=== PATIENT | male | born 1975 | race Caucasian/White ===

== ENCOUNTER 2019-06-02 12:42 | Observation (INO) | payer BC ==
--- NOTE | 2019-06-02 13:04 | ER Document Report ---
ED Medical Screen (RME) - General Chief Complaint: Trouble Talking Stated Complaint: POSSIBLE STROKE Time Seen by Provider: 06/02/19 12:47 Notes: 43-year-old male with no significant medical problems presents the emergency department with concern for stroke. Patient states his last known normal was yesterday morning and he has had slurred speech since then. Patient states that he developed a moderate headache last with some neck pain with no significant changes until yesterday morning. Patient denies any vision changes, denies any acute limb weakness, denies any confusion or disorientation, denies ataxia, denies acute shortness of breath or chest pain. Smokes cigars and drinks alcohol. NIHSS score 1 Exam: NEURO: A &O X 3, normal speech, normal gailt, PERRL, EOMI, SILT, follows commands in all 4 extremities, no gross abnormalities of cranial nerves, no focal neuro deficits, no pronator drift, [id number] testing normal, rapid alternating hand movements normal, [id number] normal, front man strength 5/5 bilateral, 5/5 strength in both proximal and distal upper and lower extremities I have greeted and performed a rapid initial assessment of this patient. A comprehensive ED assessment and evaluation of the patient, analysis of test results and completion of medical decision making process will be conducted by an additional ED providers. - Related Data Allergies/Adverse Reactions: No Known Allergies Allergy (Unverified 06/02/19 13:00) Past Medical History Renal/ Medical History: Denies: Hx Peritoneal Dialysis Physical Exam - Vital signs Vitals: Temp Pulse Resp BP Pulse Ox 98.6 F 22 L 18 199/114 H 98 06/02/19 12:46 06/02/19 12:46 06/02/19 12:46 06/02/19 12:46 06/02/19 12:46 Course - Vital Signs Vital signs: Temp Pulse Resp BP Pulse Ox 98.6 F 22 L 18 199/114 H 98 06/02/19 12:46 06/02/19 12:46 06/02/19 12:46 06/02/19 12:46 06/02/19 12:46
[2019-06-02 13:45] LABS: INTERNATIONAL RATION (INR) 0.95; PROTHROMBIN TIME 12.7 SEC (11.4-15.4)
[2019-06-02 13:46] LABS: PARTIAL THROMBOPLASTIN TIME 31.4 SEC (23.5-35.8)
[2019-06-02 13:47] LABS: APPEARANCE,URINE SLIGHTLY-CLOUDY; BILIRUBIN,URINE NEGATIVE (NEGATIVE); COLOR,URINE YELLOW; GLUCOSE, URINE NEGATIVE (NEGATIVE); KETONES,URINE NEGATIVE (NEGATIVE); LEUKOCYTE ESTERASE,URINE NEGATIVE (NEGATIVE); NITRITE,URINE NEGATIVE (NEGATIVE); PROTEIN,URINE NEGATIVE (NEGATIVE); URINE SPECIFIC GRAVITY 1.019; UROBILINOGEN,URINE NEGATIVE mg/dL (<2.0)
--- NOTE | 2019-06-02 13:58 | RADIOLOGY REPORT (SQ) ---
EXAM DESCRIPTION: CT HEAD WITHOUT COMPLETED DATE/TIME: 06/02/2019 1:43 pm REASON FOR STUDY: stroke alert COMPARISON: None. TECHNIQUE: Axial images acquired through the brain without intravenous contrast. Images reviewed wi th bone, brain and subdural windows. Additional sagittal and coronal reconstructions were generated. Images stored on PACS. All CT scanners at this facility use dose modulation, iterative reconstruction, and/or weight based d osing when appropriate to reduce radiation dose to as low as reasonably achievable (ALARA). [facility]: Dose Right [facility]: CareDose [facility]: Dose Right [facility]: Teradose 4D [facility]: Pureshield RADIATION DOSE: CT Rad equipment meets quality standard of care and radiation dose reduction techniq ues were employed. CTDIvol: 53.2 mGy. DLP: 1017 mGy-cm. mGy. LIMITATIONS: None. FINDINGS: VENTRICLES: Normal size and contour. CEREBRUM: No masses. No hemorrhage. No midline shift. No evidence for acute infarction. Normal gra y/white matter differentiation. No areas of low density in the white matter. CEREBELLUM: No masses. No hemorrhage. No alteration of density. No evidence for acute infarction. EXTRAAXIAL SPACES: No fluid collections. No masses. ORBITS AND GLOBE: No intra- or extraconal masses. Normal contour of globe without masses. CALVARIUM: No fracture. PARANASAL SINUSES: No fluid or mucosal thickening. SOFT TISSUES: No mass or hematoma. OTHER: No other significant finding. IMPRESSION: NORMAL BRAIN CT WITHOUT CONTRAST. EVIDENCE OF ACUTE STROKE: NO. COMMENT: Pertinent positive or negative findings of the imaging study reported as a CRITICAL EXAM ahsan LUNA PA-C at13:48 on 06/02/2019. Category of Critical Exam: Stroke protocol. Quality ID # [id number]: Final reports with documentation of one or more dose reduction techniques (e.g., Au tomated exposure control, adjustment of the mA and/or kV according to patient size, use of iterative reconstruction technique) TECHNICAL DOCUMENTATION: JOB ID: [id number] [employer]- All Rights Reserved Reading location - IP/workstation name: [email or web address]-
[2019-06-02 14:00] LABS: ALBUMIN 4.9 g/dL (3.5-5.0); ALKALINE PHOSPHATASE 68 U/L (38-126); ANION GAP 12 (5-19); ASPARTATE AMINO TRANSFERASE 25 U/L (17-59); BILIRUBIN,DIRECT 0.2 mg/dL (0.0-0.4); BILIRUBIN,TOTAL 0.4 mg/dL (0.2-1.3); BLOOD UREA NITROGEN 15 mg/dL (7-20); CALCIUM 9.8 mg/dL (8.4-10.2); CARBON DIOXIDE 29 mmol/L (22-30); CHLORIDE 101 mmol/L (98-107); GLUCOSE 110 mg/dL (75-110); POTASSIUM 4.2 mmol/L (3.6-5.0); TOTAL PROTEIN 7.8 g/dL (6.3-8.2)
[2019-06-02 14:08] LABS: ABSOLUTE EOSINOPHILS # (AUTO) 0.1 10^3/uL (0.0-0.6); ABSOLUTE LYMPHOCYTES (AUTO) 1.2 10^3/uL (0.5-4.7); ABSOLUTE MONOCYTES (AUTO) 0.8 10^3/uL (0.1-1.4); ABSOLUTE NEUT (AUTO) 5.3 10^3/uL (1.7-8.2); BASOPHILS % (AUTO) 0.5 % (0-2); EOSINOPHILS % (AUTO) 1.2 % (0-6); LYMPHOCYTES % (AUTO) 16.4 % (13-45); MEAN CORPUSCULAR HEMOGLOBIN 30.7 pg (27.0-33.4); MEAN CORPUSCULAR VOLUME 90 fl (80-97); MONOCYTES % (AUTO) 10.3 % (3-13); PLATELET COUNT 301 10^3/uL (150-450); RED BLOOD COUNT 4.88 10^6/uL (4.35-5.55); RED CELL DISTRIBUTION WIDTH 14.1 % (11.5-14.0); SEGMENTED NEUTROPHILS % (AUTO) 71.6 % (42-78); TOTAL CELLS COUNTED % (AUTO) 100 %; WHITE BLOOD COUNT 7.4 10^3/uL (4.0-10.5)
--- NOTE | 2019-06-02 15:16 | ER Document Report ---
ED General - General Chief Complaint: Trouble Talking Stated Complaint: POSSIBLE STROKE Time Seen by Provider: 06/02/19 12:47 - HPI Notes: Patient is a 43-year-old male with a history of hypertension and hypercholesterolemia who presents complaining of right facial droop with slurring of speech, difficulty with his words, and global headache. He has noticed some neck pain as well. Patient states that the headache began this past weekend, but he woke up with the slurring yesterday morning. Patient states that he has noticed symptoms continued through today. He otherwise is able to eat and drink without difficulty. He is urinating normally and having normal bowel movements. He is able to ambulate without difficulty. He has not noticed any one-sided weakness. No tick bite or recent illness. Denies drug allergies. He is not on any blood thinning medications. No injury. Denies any fever, head injury, changes in vision/mentation/hearing, URI, sore throat, chest pain, palpitations, syncope, cough, shortness of breath, wheeze, dyspnea, abdominal pain, nausea/vomiting/diarrhea, urinary retention, dysuria, hematuria, loss of control of bowel or bladder, numbness/tingling, saddle anesthesia, muscle paralysis/weakness, or rash. - Related Data Allergies/Adverse Reactions: No Known Allergies Allergy (Verified 06/02/19 15:22) Past Medical History - Social History Smoking Status: Never Smoker Family History: Reviewed & Not Pertinent Patient has suicidal ideation: No Patient has homicidal ideation: No Renal/ Medical History: Denies: Hx Peritoneal Dialysis Review of Systems - Review of Systems -: Yes All other systems reviewed and negative Physical Exam - Vital signs Vitals: Temp Pulse Resp BP Pulse Ox 98.6 F 22 L 18 199/114 H 98 06/02/19 12:46 06/02/19 12:46 06/02/19 12:46 06/02/19 12:46 06/02/19 12:46 - Notes Notes: PHYSICAL EXAMINATION: GENERAL: Well-appearing, well-nourished and in no acute distress. A&Ox4. Answers questions appropriately. HEAD: Atraumatic, normocephalic. Non-tender. EYES: Pupils equal round and reactive to light, extraocular movements intact, sclera anicteric, conjunctiva are normal. No nystagmus. ENT: Nares patent and without discharge. oropharynx clear without exudates. No tonsilar hypertrophy or erythema. Moist mucous membranes. NECK: Normal range of motion, supple without lymphadenopathy. No rigidity/meningismus. No midline tenderness. LUNGS: Breath sounds clear to auscultation bilaterally and equal. No wheezes rales or rhonchi. HEART: Regular rate and rhythm without murmurs, rubs, gallops. ABDOMEN: Soft, nontender, nondistended abdomen. No guarding, no rebound. Normal bowel sounds present. No CVA tenderness bilaterally. Musculoskeletal: Ext b/l: FROM to passive/active. Strength 5+/5. No deficits noted. No bony tenderness of extremities. Extremities: No cyanosis, clubbing, or edema b/l. Peripheral pulses 2+. Capillary refill less than 2 seconds. NEUROLOGICAL: NIH 3 (one for slurring, one for speech articulation, and one for facial asymmetry (mild)). GCS 15. Cranial nerves grossly intact. Normal spee ch, normal gait. Normal sensory, motor exams. Reflexes 2+ b/l. ABBEY's negative. Pronator drift negative. Heel/macias, finger/nose wnl. Romberg neg. PSYCH: Normal mood, normal affect. SKIN: Warm, Dry, normal turgor, no rashes or lesions noted. Course - Re-evaluation Re-evalutation: 06/02/19 15:[address] Zamora who recommends admission. I did speak with Daphney Merino PA-C who accepted pt for admit to [facility]. Patient is an afebrile, well-hydrated, 43-year-old male who presents with strokelike symptoms with an NIH of 3 who is outside of the acute stroke window as his symptoms began when he woke up yesterday morning. He does have an associated headache. Vitals are otherwise acceptable aside from elevated blood pressure without significant tachycardia, tachypnea, or hypoxia. Labetalol 10 mg given IV today. Patient is otherwise nontoxic-appearing and is able to tolerate p.o. without difficulty. CT scan and labs otherwise unremarkable. Patient will be admitted to [facility] for further eval. - Vital Signs Vital signs: Temp Pulse Resp BP Pulse Ox 98.6 F 22 L 14 162/111 H 97 06/02/19 12:46 06/02/19 12:46 06/02/19 15:01 06/02/19 15:01 06/02/19 15:01 - Laboratory Result Diagrams: 06/02/19 13:10 06/02/19 13:10 Laboratory results interpreted by me: 06/02/19 13:10 RDW 14.1 H Discharge - Discharge Clinical Impression: Stroke-like symptoms Condition: Stable Disposition: ADMITTED INPATIENT Admitting Provider: Daphney Merino PA-C Unit Admitted: [facility]
[2019-06-02] MEDS ORDERED: LABETALOL HCL INJ 20 MG/4 ML DISP.SYRIN IV ONE (15:20)
--- NOTE | 2019-06-02 15:56 | RADIOLOGY REPORT (SQ) ---
EXAM DESCRIPTION: CHEST SINGLE VIEW COMPLETED DATE/TIME: 06/02/2019 3:47 pm REASON FOR STUDY: stroke alert COMPARISON: None. EXAM PARAMETERS: NUMBER OF VIEWS: One view. TECHNIQUE: Single frontal radiographic view of the chest acquired. RADIATION DOSE: NA LIMITATIONS: None. FINDINGS: LUNGS AND PLEURA: No opacities, masses or pneumothorax. No pleural effusion. MEDIASTINUM AND HILAR STRUCTURES: No masses. Contour normal. HEART AND VASCULAR STRUCTURES: Heart upper limits of normal in size. Normal vasculature. BONES: No acute findings. HARDWARE: None in the chest. OTHER: No other significant finding. IMPRESSION: NO ACUTE RADIOGRAPHIC FINDING IN THE CHEST. TECHNICAL DOCUMENTATION: JOB ID: [id number] [employer]- All Rights Reserved Reading location - IP/workstation name: [email or web address]
[2019-06-02] MEDS ORDERED: OXYCODONE-ACETAMINOPHEN 5-325 MG TABLET PO PRN (15:57)
[2019-06-02] MEDS ORDERED: ACETAMINOPHEN 325 MG TABLET PO PRN (15:57)
[2019-06-02] MEDS ORDERED: ONDANSETRON 4 MG TAB.RAPDIS PO PRN (15:57)
[2019-06-02] MEDS ORDERED: ONDANSETRON HCL INJ/PF 4 MG/2 ML SDV IV PRN (15:57)
[2019-06-02] MEDS ORDERED: HYDRALAZINE HCL INJ/PF 20 MG/1 ML SDV IV PRN ×2 (16:13→20:58)
--- NOTE | 2019-06-02 16:33 | PDOC H&P ---
History of Present Illness Admission Date/PCP: 06/02/19 15:45 Patient admitted today for hypertensive emergency History of Present Illness: PROMISE ARTIS is a 43 year old male moved down here from [place] about 2 months ago. 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 comes into the emergency room today because he has had slurred speech, headache for about a week ,what appears to be a right facial droop. When I saw the patient he had no facial weakness. According to his patient the symptoms started yesterday morning. He was at work today and they told him that he was slurring his words and he should go to the emergency room. In the emergency room his first blood pressure was 199/114 then 162/111, and 161/109. When I was in the room examining the patient that was his current pressure 161/109. She has had 1 dose of labetalol 10 mg IV in the ER Patient states his regular blood pressures are 124/85. States that last in August his blood pressure was doing so well that his provider cut the Norvasc back in half to 5 mg daily. He states he has been on blood pressure medicine now for a year and a half. Patient does have a strong family history of hypertension. CT head scan was normal,, chest x-ray was normal, EKG was normal. Past Medical History Cardiac Medical History: Reports: Hyperlipidema, Hypertension Pulmonary Medical History: Reports: None Neurological Medical History: Reports: None Past Surgical History Past Surgical History: Reports: None Social History Smoking Status: Never Smoker - Advance Directive Resuscitation Status: Full Code Family History Family History: Reviewed & Not Pertinent Parental Family History Reviewed: No Children Family History Reviewed: No Sibling(s) Family History Reviewed.: No Medication/Allergy Allergies/Adverse Reactions: No Known Allergies Allergy (Verified 06/02/19 15:22) Review of Systems Constitutional: PRESENT: as per HPI, headache(s). ABSENT: chills, fever(s), weight gain, weight loss Cardiovascular: ABSENT: chest pain, dyspnea on exertion, edema, orthropnea, palpitations Respiratory: ABSENT: cough, hemoptysis Neurological: ABSENT: abnormal gait, abnormal speech, confusion, dizziness, focal weakness, syncope Physical Exam Vital Signs: Temp Pulse Resp BP Pulse Ox 98.6 F 22 L 25 H 161/109 H 97 06/02/19 12:46 06/02/19 12:46 06/02/19 15:31 06/02/19 15:31 06/02/19 15:31 Intake & Output 06/01/19 06/02/19 06/03/19 06:59 06:59 06:59 Weight 115.2 kg General appearance: PRESENT: no acute distress, other - She is awake alert complaining of slight headache. Patient talks for long period of time or in full sentences he can notice that he is slurring his words having difficulty with expressive Respiratory exam: PRESENT: clear to auscultation ela. ABSENT: rales, rhonchi, wheezes Cardiovascular exam: PRESENT: RRR. ABSENT: diastolic murmur, rubs, systolic murmur Neurological exam: PRESENT: alert, awake, oriented to person, oriented to place, oriented to time, oriented to situation, CN II-XII grossly intact, other - Dysarthria no motor deficit. ABSENT: motor sensory deficit Psychiatric exam: PRESENT: appropriate affect, normal mood. ABSENT: homicidal ideation, suicidal ideation Results Laboratory Results: 06/02/19 13:10 06/02/19 13:10 06/02/19 06/02/19 06/02/19 13:10 13:10 13:10 WBC 7.4 RBC 4.88 Hgb 15.0 Hct 44.0 MCV 90 MCH 30.7 MCHC 34.0 RDW 14.1 H Plt Count 301 Seg Neutrophils % 71.6 Sodium 142.2 Potassium 4.2 Chloride 101 Carbon Dioxide 29 Anion Gap 12 BUN 15 Creatinine 0.76 Est GFR ( Amer) > 60 Glucose 110 Calcium 9.8 Total Bilirubin 0.4 AST 25 Alkaline Phosphatase 68 Total Protein 7.8 Albumin 4.9 Urine Color YELLOW Urine Appearance SLIGHTLY-CLOUDY Urine pH 5.0 Ur Specific [place] 1.019 Urine Protein NEGATIVE Urine Glucose (UA) NEGATIVE Urine Ketones NEGATIVE Urine Blood NEGATIVE Urine Nitrite NEGATIVE Ur Leukocyte Esterase NEGATIVE Urine WBC (Auto) 1 Urine RBC (Auto) 1 06/02/19 13:10 Troponin I < 0.012 Impressions: Chest X-Ray 06/02/19 13:00 IMPRESSION: NO ACUTE RADIOGRAPHIC FINDING IN THE CHEST. Head CT 06/02/19 13:00 IMPRESSION: NORMAL BRAIN CT WITHOUT CONTRAST. EVIDENCE OF ACUTE STROKE: NO. Assessment and Plan - Diagnosis (1) Hypertensive emergency Is this a current diagnosis for this admission?: Yes Plan: Patient states his normal blood pressure is 124/85, in the emergency room 199/114 patient is having TIA-like symptoms with slurred speech slight headache and earlier had a right facial droop.. Patient states that some of the symptoms actually started yesterday. According to his they worsen today. (2) Hyperlipidemia Is this a current diagnosis for this admission?: Yes Plan: Patient is on simvastatin 10 mg daily lipid panel was scheduled for tomorrow (3) Obesity Is this a current diagnosis for this admission?: Yes Plan: His weight today is 115 kg, height 5 feet 10 inches - Time Time Spent with patient: 35 or more minutes
[2019-06-02 16:34] LABS: CHOLESTEROL 179.81 mg/dL (0-200); CREATINE KINASE 138 U/L (55-170); TRIGLYCERIDES 66 mg/dL (<150)
[2019-06-02] MEDS: ENOXAPARIN SODIUM INJ 40 MG/0.4 ML DISP.SYRIN SUBCUT SCH (16:45)
[2019-06-02 16:46] LABS: DIRECT LDL 131 mg/dL (<100)
[2019-06-02] MEDS ORDERED: AMLODIPINE BESYLATE 10 MG TABLET PO SCH (17:00)
[2019-06-02] MEDS ORDERED: HYDROCHLOROTHIAZIDE 25 MG TABLET PO SCH (17:00)
--- NOTE | 2019-06-02 18:26 | RADIOLOGY REPORT (SQ) ---
EXAM DESCRIPTION: MRA HEAD WITHOUT COMPLETED DATE/TIME: 06/02/2019 5:58 pm REASON FOR STUDY: TIA, HTN COMPARISON: None. TECHNIQUE: Axial 3-D [id number] acquisition imaging performed through the brain in the area of t he nap[place] of [place]. Images reformatted using 3-D MIPS. LIMITATIONS: None. FINDINGS: SOURCE IMAGES: No unexpected findings on source images. No large masses. 3-D MIP: Subtotal occlusion of the left MCA with hypoperfusion of the left MCA distribution. OTHER: No other significant finding. IMPRESSION: Subtotal occlusion of the left MCA with hypoperfusion of the left MCA distribution. COMMENT: The findings were sent to the Radiology Results Communication Center at 18:20 on 06/02/2019 to be communicated to a licensed caregiver. TECHNICAL DOCUMENTATION: JOB ID: [id number] [employer]- All Rights Reserved Reading location - IP/workstation name: [email or web address]
--- NOTE | 2019-06-02 18:32 | RADIOLOGY REPORT (SQ) ---
EXAM DESCRIPTION: MRI HEAD WITHOUT COMPLETED DATE/TIME: 06/02/2019 5:59 pm REASON FOR STUDY: TIA, hypertension COMPARISON: CT brain TECHNIQUE: Multiplanar imaging includes non-contrasted T1, T2, FLAIR, and diffusion with ADC map seq uences. Images stored on PACS. LIMITATIONS: None. FINDINGS: ANATOMY: No anomalies. Normal vascular flow voids. Pituitary fossa normal. CSF SPACES: Normal in size and contour. No hemorrhage. CEREBRUM: Sulci and gyri normal in size and contour. Punctate areas scattered through the white and fritz matter left hemisphere. . No evidence of hemorrhage, mass, or extraaxial fluid collection. POSTERIOR FOSSA: No signal alteration. No hemorrhage. No edema, masses or mass effect. Internal estela tory canals, cerebello-pontine angles, mastoids normal. DIFFUSION IMAGING: Multiple punctate areas of restricted diffusion in the left hemisphere. Large are a in the left basal ganglia. ORBITS: No masses. Globes normal. PARANASAL SINUSES: No fluid levels. Mucosa normal. OTHER: No other significant finding. IMPRESSION: Multiple small acute infarcts involving the left MCA distribution. EVIDENCE OF ACUTE STROKE: YES. LEFT MCA COMMENT: The findings were sent to the Radiology Results Communication Center at 18:26 on 06/02/2019 to be communicated to a licensed caregiver. TECHNICAL DOCUMENTATION: JOB ID: [id number] [employer]- All Rights Reserved Reading location - IP/workstation name: [email or web address]
[2019-06-02] MEDS ORDERED: LABETALOL HCL INJ 20 MG/4 ML DISP.SYRIN IV PRN (20:58)
[2019-06-02] MEDS ORDERED: ATORVASTATIN CALCIUM 40 MG TABLET PO SCH (22:00)
[2019-06-02] MEDS ORDERED: METOPROLOL TARTRATE 100 MG TABLET PO SCH (22:00)
[2019-06-02] MEDS ORDERED: LISINOPRIL 10 MG TABLET PO SCH (22:00)
--- NOTE | 2019-06-02 22:18 | EKG REPORT ---
SEVERITY:- BORDERLINE ECG - SINUS RHYTHM BORDERLINE T ABNORMALITIES, ANTERIOR LEADS : Confirmed by: Wesley Baptiste 02-Jun-2019 22:17:19
[2019-06-02] MEDS: FAMOTIDINE 20 MG TABLET PO SCH (22:22)
[2019-06-02] MEDS: METOPROLOL SUCCINATE 50 MG TAB.SR.24H PO SCH (22:22)
[2019-06-02] MEDS: ZOLPIDEM TARTRATE 5 MG TABLET PO SCH (22:22)
[2019-06-03 07:34] LABS: ANION GAP 10 (5-19); BLOOD UREA NITROGEN 12 mg/dL (7-20); CALCIUM 9.5 mg/dL (8.4-10.2); CARBON DIOXIDE 31 mmol/L (22-30); CHLORIDE 100 mmol/L (98-107); GLUCOSE 112 mg/dL (75-110); POTASSIUM 3.5 mmol/L (3.6-5.0)
[2019-06-03] MEDS ORDERED: HYDRALAZINE HCL INJ/PF 20 MG/1 ML SDV IV PRN (09:19)
[2019-06-03] MEDS: ASPIRIN 81 MG TABLET, ENT COATED PO SCH (11:11)
[2019-06-03] MEDS: CLOPIDOGREL BISULFATE 75 MG TABLET PO SCH (11:12)
[2019-06-03] MEDS: LOSARTAN POTASSIUM 50 MG TABLET PO SCH (11:12)
[2019-06-03] MEDS: FAMOTIDINE 20 MG TABLET PO SCH ×2 (11:12→21:40)
[2019-06-03] MEDS: ENOXAPARIN SODIUM INJ 40 MG/0.4 ML DISP.SYRIN SUBCUT SCH (11:12)
--- NOTE | 2019-06-03 16:40 | PDOC PROGRESS REPORT ---
Subjective Progress Note for:: 06/03/19 Subjective:: The patient is a 43 year old male with a past medical history of HTN, HLD, and obesity who was admitted 06/02/19 with strokelike symptoms. His symptoms have nearly resolved other than continued Slurred speech, although, patient and family reports that this is significantly improved and he is nearly returned to baseline. Patient was seen on morning rounds with his present. He is found resting in bed comfortably on room air. He reports continued slight slurred speech but all other symptoms have resolved. He has been ambulatory in the hallways without difficulty and is requesting to be allowed to go outside for a few minutes today. He denies fever, chills, chest pain, palpitations, dyspnea, abdominal pain, nausea vomiting diarrhea. He denies focal deficits. Reviewed imaging results and recommendations for follow-up JOSE C. All questions answered to their satisfaction. Reason For Visit: HYPERTENSIVE EMERGENCY,HYPERLIPIDEMIA,OBESITY Physical Exam Vital Signs: Temp Pulse Resp BP Pulse Ox 98.5 F 73 18 152/98 H 96 06/03/19 12:01 06/03/19 12:01 06/03/19 12:01 06/03/19 12:01 06/03/19 12:01 Intake & Output 06/02/19 06/03/19 06/04/19 06:59 06:59 06:59 Intake Total 480 Balance 480 Weight 113 kg General appearance: PRESENT: no acute distress, cooperative, obese, well- developed, well-nourished Head exam: PRESENT: atraumatic, normocephalic Eye exam: PRESENT: conjunctiva pink, EOMI, PERRLA. ABSENT: scleral icterus Ear exam: PRESENT: normal external ear exam Mouth exam: PRESENT: moist, tongue midline Neck exam: ABSENT: carotid bruit, JVD, lymphadenopathy, thyromegaly Respiratory exam: PRESENT: clear to auscultation ela, symmetrical, unlabored. ABSENT: rales, rhonchi, wheezes Cardiovascular exam: PRESENT: RRR. ABSENT: diastolic murmur, rubs, systolic murmur Pulses: PRESENT: normal dorsalis pedis pul Vascular exam: PRESENT: normal capillary refill GI/Abdominal exam: PRESENT: normal bowel sounds, soft. ABSENT: distended, guarding, mass, organolmegaly, rebound, tenderness Rectal exam: PRESENT: deferred Extremities exam: PRESENT: full ROM. ABSENT: calf tenderness, clubbing, pedal edema Neurological exam: PRESENT: alert, awake, oriented to person, oriented to place, oriented to time, oriented to situation, CN II-XII grossly intact, other - Slight slurred speech per family; I do not notice speech changes.. ABSENT: motor sensory deficit Psychiatric exam: PRESENT: appropriate affect, normal mood. ABSENT: homicidal ideation, suicidal ideation Skin exam: PRESENT: dry, intact, warm. ABSENT: cyanosis, rash Results Laboratory Results: 06/02/19 13:10 06/03/19 06:00 06/02/19 06/02/19 06/03/19 13:10 13:10 06:00 Sodium 141.4 Potassium 3.5 L Chloride 100 Carbon Dioxide 31 H Anion Gap 10 BUN 12 Creatinine 0.78 Est GFR ( Amer) > 60 Glucose 112 H Calcium 9.5 Magnesium 2.2 Triglycerides 66 Cholesterol 179.81 LDL Cholesterol Direct 131 H VLDL Cholesterol 13.0 HDL Cholesterol 53 TSH 1.18 06/02/19 06/02/19 13:10 13:10 Creatine Kinase 138 Troponin I < 0.012 Impressions: Brain MRI with MRA 06/02/19 00:00 IMPRESSION: Subtotal occlusion of the left MCA with hypoperfusion of the left MCA distribution. Head MRI 06/02/19 00:00 IMPRESSION: Multiple small acute infarcts involving the left MCA distribution. EVIDENCE OF ACUTE STROKE: YES. LEFT MCA Chest X-Ray 06/02/19 13:00 IMPRESSION: NO ACUTE RADIOGRAPHIC FINDING IN THE CHEST. Head CT 06/02/19 13:00 IMPRESSION: NORMAL BRAIN CT WITHOUT CONTRAST. EVIDENCE OF ACUTE STROKE: NO. Assessment and Plan - Diagnosis (1) Acute CVA (cerebrovascular accident) Is this a current diagnosis for this admission?: Yes Plan: MRI reveals multiple small acute infarcts involving the left MCA. Brain MRI/MRA shows subtotal occlusion of the left MCA with hypoperfusion of the left MCA distribution. Echocardiogram completed; formal report not yet available however preliminary is negative for intramural thrombus. Carotid Doppler pending. I have arranged for the patient to undergo JOSE C at [facility] on . Lipid, thyroid, A1c acceptable. Patient has been admitted to [facility] on continuous cardiac telemetry. He continues on daily aspirin, Plavix, statin therapy. Management of hypertension as below. PT/OT/ST consultations obtained. Discharge planning consulted. (2) Hyperlipidemia Is this a current diagnosis for this admission?: Yes Plan: Lipid panel is acceptable. High-dose statin secondary to acute CVA. Cardiac diet. (3) Hypertensive emergency Is this a current diagnosis for this admission?: Yes Plan: Patient presented to the emergency room with blood pressures of 199/114. Patient was placed on losartan and metoprolol. He is also provided IV hydralazine and Lopressor PRN for blood pressure control; have increased parameters today to allow for permissive hypertension. Continue cardiac diet. (4) Obesity Is this a current diagnosis for this admission?: Yes Plan: BMI 35.7. Dietary discretion and lifestyle modification are encouraged. Cardiac diet. - Time Time Spent with patient: 35 or more minutes Medications reviewed and adjusted accordingly: Yes Anticipated discharge: Home Within: within 48 hours - Inpatient Certification Medical Necessity: Need Close Monitoring Due to Risk of Patient Decompensation, Need For Continuous Telemetry Monitoring, Risk of Complication if Not Cared For in Hospital, Risk of Diagnosis Which Will Require Inpatient Eval/Care/Monitoring
[2019-06-03] MEDS: ATORVASTATIN CALCIUM 40 MG TABLET PO SCH (21:40)
[2019-06-03] MEDS: METOPROLOL SUCCINATE 50 MG TAB.SR.24H PO SCH (21:40)
[2019-06-04] MEDS: ZOLPIDEM TARTRATE 5 MG TABLET PO SCH ×2 (00:03→21:58)
--- NOTE | 2019-06-04 01:01 | RADIOLOGY REPORT (SQ) ---
EXAM DESCRIPTION: [facility]: US CAROTID DOPPLER BILATERAL CLINICAL HISTORY: 43 years Male; Acute CVA TECHNIQUE: Grayscale and Doppler (color and pulse) ultrasound of bilateral carotid arteries and the vertebral arteries was performed. Stenosis assessment based on Carotid Artery Stenosis: Velasco-Scale and Doppler US DiagnosisSociety of Radiologists in Ultrasound Consensus Conference; Radiology, Jul 2003, Vol. 229:340-346 COMPARISON: None. FINDINGS: All velocities in cm/sec. Right carotid: Morphology: Mild intimal thickening along proximal ICA. No calcific plaque ICA velocities: Proximal 71/21, distal 78/30 (Normal < 124/40) CCA PSV: Proximal 83, distal 93 ICA/CCA PSV ratio: 0.8 (Normal < 2.0) ECA: PSV 90 Left carotid: Morphology: Minimal intimal thickening at the ICA origin ICA velocities: Proximal 49/15, distal 62/31 (Normal < 124/40) CCA PSV: Proximal 121, distal 99 ICA/CCA PSV ratio: 0.6 (Normal < 2.0) ECA: PSV 94 Right vertebral: Antegrade flow Left vertebral: Antegrade flow IMPRESSION: 1. Mild atherosclerosis with mild intimal thickening in the proximal internal carotid arteries. 2. No stenosis of the carotid arteries 3. Normal antegrade flow in both vertebral arteries
[2019-06-04] MEDS: CLOPIDOGREL BISULFATE 75 MG TABLET PO SCH (10:38)
[2019-06-04] MEDS: ASPIRIN 81 MG TABLET, ENT COATED PO SCH (10:38)
[2019-06-04] MEDS: FAMOTIDINE 20 MG TABLET PO SCH ×2 (10:39→21:59)
[2019-06-04] MEDS: ENOXAPARIN SODIUM INJ 40 MG/0.4 ML DISP.SYRIN SUBCUT SCH (10:42)
--- NOTE | 2019-06-04 15:23 | PDOC PROGRESS REPORT ---
Subjective Progress Note for:: 06/04/19 Subjective:: The patient is a 43 year old male with a past medical history of HTN, HLD, and obesity who was admitted 06/02/19 with strokelike symptoms. His symptoms have nearly resolved other than continued Slurred speech, although, patient and family reports that this is significantly improved and he is nearly returned to baseline. Patient was seen on afternoon rounds with his present. He is found resting in bed comfortably on room air. He reports continued slight slurred speech, but improved. All other symptoms have resolved. He has been ambulatory in the hallways and outside a couple of times today. He denies fever, chills, chest pain, palpitations, dyspnea, abdominal pain, nausea vomiting diarrhea. He denies focal deficits. Patient and had multiple questions regarding the potential cause of his stroke. Reviewed the patient's risk factors and plans for JOSE C to rule out cardiogenic source. All questions answered to their satisfaction. No concerns per nursing. Reason For Visit: HYPERTENSIVE EMERGENCY,HYPERLIPIDEMIA,OBESITY Physical Exam Vital Signs: Temp Pulse Resp BP Pulse Ox 98.4 F 59 L 17 135/92 H 98 06/04/19 12:41 06/04/19 12:41 06/04/19 12:41 06/04/19 12:41 06/04/19 12:41 Intake & Output 06/03/19 06/04/19 06/05/19 06:59 06:59 06:59 Intake Total 1720 600 Balance 1720 600 Weight 113 kg 113 kg General appearance: PRESENT: no acute distress, cooperative, well-developed, well-nourished Head exam: PRESENT: atraumatic, normocephalic Eye exam: PRESENT: conjunctiva pink, EOMI, PERRLA. ABSENT: scleral icterus Ear exam: PRESENT: normal external ear exam Mouth exam: PRESENT: moist, tongue midline Neck exam: ABSENT: carotid bruit, JVD, lymphadenopathy, thyromegaly Respiratory exam: PRESENT: clear to auscultation ela. ABSENT: rales, rhonchi, wheezes Cardiovascular exam: PRESENT: RRR. ABSENT: diastolic murmur, rubs, systolic murmur Pulses: PRESENT: normal dorsalis pedis pul Vascular exam: PRESENT: normal capillary refill GI/Abdominal exam: PRESENT: normal bowel sounds, soft. ABSENT: distended, guarding, mass, organolmegaly, rebound, tenderness Rectal exam: PRESENT: deferred Extremities exam: PRESENT: full ROM. ABSENT: calf tenderness, clubbing, pedal edema Musculoskeletal exam: PRESENT: ambulatory Neurological exam: PRESENT: alert, awake, oriented to person, oriented to place, oriented to time, oriented to situation, CN II-XII grossly intact. ABSENT: motor sensory deficit Psychiatric exam: PRESENT: appropriate affect, normal mood. ABSENT: homicidal ideation, suicidal ideation Skin exam: PRESENT: dry, intact, warm. ABSENT: cyanosis, rash Results Laboratory Results: 06/02/19 13:10 06/03/19 06:00 06/02/19 06/02/19 13:10 13:10 Creatine Kinase 138 Troponin I < 0.012 Impressions: Brain MRI with MRA 06/02/19 00:00 IMPRESSION: Subtotal occlusion of the left MCA with hypoperfusion of the left MCA distribution. Head MRI 06/02/19 00:00 IMPRESSION: Multiple small acute infarcts involving the left MCA distribution. EVIDENCE OF ACUTE STROKE: YES. LEFT MCA Chest X-Ray 06/02/19 13:00 IMPRESSION: NO ACUTE RADIOGRAPHIC FINDING IN THE CHEST. Head CT 06/02/19 13:00 IMPRESSION: NORMAL BRAIN CT WITHOUT CONTRAST. EVIDENCE OF ACUTE STROKE: NO. Carotid Doppler Study 06/03/19 00:00 IMPRESSION: 1. Mild atherosclerosis with mild intimal thickening in the proximal internal carotid arteries. 2. No stenosis of the carotid arteries 3. Normal antegrade flow in both vertebral arteries Assessment and Plan - Diagnosis (1) Acute CVA (cerebrovascular accident) Is this a current diagnosis for this admission?: Yes Plan: MRI reveals multiple small acute infarcts involving the left MCA. Brain MRI/MRA shows subtotal occlusion of the left MCA with hypoperfusion of the left MCA distribution. Echocardiogram completed; formal report not yet available however preliminary is negative for intramural thrombus. Carotid Doppler is benign. I have arranged for the patient to [facility] . Lipid, thyroid, A1c acceptable. Patient has been admitted to [facility] on continuous cardiac telemetry. He continues on daily aspirin, Plavix, statin therapy. Management of hypertension as below. PT/OT/ST consultations obtained. Discharge planning consulted. (2) Hyperlipidemia Is this a current diagnosis for this admission?: Yes Plan: Lipid panel is acceptable. High-dose statin secondary to acute CVA. Cardiac diet. (3) Hypertensive emergency Is this a current diagnosis for this admission?: Yes Plan: Blood pressure is improved today; 135/92 Patient presented to the emergency room with blood pressures of 199/114. Patient was placed on losartan and metoprolol. Will decrease metoprolol dose tonight r/t bradycardia (HR 50-60). He is also provided IV hydralazine and Lopressor PRN for blood pressure control; have increased parameters today to allow for permissive hypertension. Continue cardiac diet. (4) Obesity Is this a current diagnosis for this admission?: Yes Plan: BMI 35.7. Dietary discretion and lifestyle modification are encouraged. Cardiac diet. - Time Time Spent with patient: 35 or more minutes Medications reviewed and adjusted accordingly: Yes Anticipated discharge: Home Within: within 24 hours
[2019-06-04] MEDS: LOSARTAN POTASSIUM 50 MG TABLET PO SCH (17:56)
--- NOTE | 2019-06-04 21:05 | XCELERA REPORT ---
[address] [address] Transthoracic Echocardiogram Report Name: PROMISE ARTIS Age: 43 yrs Gender: Male : 1975 Patient Status: Inpatient Patient Location: [address] [place], [place] [id number] Study Date: 06/03/2019 10:22 AM Height: 70 in Weight: 253 lb BSA: 2.3 m2 Procedure: A two-dimensional transthoracic echocardiogram with color flow and Doppler was performed. Study Quality: Fair. Reason For Study: Slurred speech History: CVA. Ordering Physician: NA WALKER Performed By: Ashley Blancas Interpretation Summary There is no obvious cardiac source of embolus noted on this transthoracic echocardiogram. Follow-up with a JOSE C is suggested if cardiac source is still suspected. The left ventricle is normal in size. There is normal left ventricular wall thickness. The left ventricular ejection fraction is within normal limits. LV EF is 65% Doppler measurements suggest normal left ventricular diastolic function The left ventricular wall motion is normal. There is no thrombus. Cannot assess ASD ,VSD , or PFO. The right ventricle is grossly normal size. The right atrium is normal. The left atrial size is normal. There is no evidence of mitral valve prolapse. There is no vegetation seen on the mitral valve. There is no mitral valve stenosis. There is a trace amount of mitral regurgitation There is no aortic valvular vegetation. There is no aortic valve stenosis There is no LVOT obstruction. No aortic regurgitation is present. There is no tricuspid stenosis. There is a trace amount of tricuspid regurgitation No signifiacnt Pulmonary hypertension.RVSP is 26 to 31 mm of Hg, with RA mean of 5 to 10. There is no pulmonic valvular stenosis. There is a trace amount of pulmonic regurgitation The aortic root is normal size. The inferior vena cava appeared normal and decreased > 50% with respiration (RAP 5-10 mmHg) There is no pericardial effusion. There is no obvious cardiac source of embolus noted on this transthoracic echocardiogram. Follow-up with a JOSE C is suggested if cardiac source is still suspected MMode/2D Measurements & Calculations RVDd: 3.2 cm LVIDd: 5.0 cm FS: 38.6 % Ao root diam: 3.3 cm IVSd: 0.98 cm LVIDs: 3.1 cm EDV(Teich): 118.7 ml Ao root area: 8.4 cm2 LVPWd: 0.98 cm ESV(Teich): 37.1 ml LA dimension: 3.1 cm EF(Teich): 68.7 % Doppler Measurements & Calculations MV E max layla: MV P1/2t max layla: Ao V2 max: LV V1 max P.3 cm/sec 94.8 cm/sec 120.1 cm/sec 4.1 mmHg MV A max layla: MV P1/2t: 68.4 msec Ao max PG: LV V1 max: 79.0 cm/sec MVA(P1/2t): 3.2 cm2 5.8 mmHg 101.2 cm/sec MV E/A: 1.2 MV dec slope: 405.7 cm/sec2 MV dec time: 0.24 sec PA V2 max: PI end-d layla: TR max layla: MV P1/2t-pr_phl: 80.0 cm/sec 74.7 cm/sec 229.4 cm/sec 68.4 msec PA max PG: TR max P.6 mmHg 21.0 mmHg Left Ventricle The left ventricle is normal in size. There is normal left ventricular wall thickness. The left ventricular ejection fraction is within normal limits. LV EF is 65%. Doppler measurements suggest normal left ventricular diastolic function. The left ventricular wall motion is normal. There is no thrombus. Cannot assess ASD ,VSD , or PFO. Right Ventricle The right ventricle is grossly normal size. The right ventricle is not well visualized secondary to technical limitations. Atria The right atrium is normal. The left atrial size is normal. Mitral Valve There is no evidence of mitral valve prolapse. There is no vegetation seen on the mitral valve. There is no mitral valve stenosis. There is a trace amount of mitral regurgitation. Aortic Valve There is no aortic valvular vegetation. There is no aortic valve stenosis. There is no LVOT obstruction. No aortic regurgitation is present. Tricuspid Valve There is no tricuspid stenosis. There is a trace amount of tricuspid regurgitation. No signifiacnt Pulmonary hypertension.RVSP is 26 to 31 mm of Hg, with RA mean of 5 to 10. Pulmonic Valve There is no pulmonic valvular stenosis. There is a trace amount of pulmonic regurgitation. Great Vessels The aortic root is normal size. The inferior vena cava appeared normal and decreased > 50% with respiration (RAP 5-10 mmHg). Effusions There is no pericardial effusion. : NA WALKER Lakshmi
[2019-06-04] MEDS: ATORVASTATIN CALCIUM 40 MG TABLET PO SCH (21:58)
[2019-06-04] MEDS ORDERED: METOPROLOL SUCCINATE 50 MG TAB.SR.24H PO SCH (22:00)
[2019-06-05] MEDS: FAMOTIDINE 20 MG TABLET PO SCH (09:31)
[2019-06-05 12:06] VITALS: BP 121/76
[2019-06-05] MEDS: ENOXAPARIN SODIUM INJ 40 MG/0.4 ML DISP.SYRIN SUBCUT SCH (13:31)
[2019-06-05] MEDS: LOSARTAN POTASSIUM 50 MG TABLET PO SCH (13:31)
[2019-06-05] MEDS: ASPIRIN 81 MG TABLET, ENT COATED PO SCH (13:31)
[2019-06-05] MEDS: CLOPIDOGREL BISULFATE 75 MG TABLET PO SCH (13:32)
[2019-06-05] MEDS ORDERED: ATORVASTATIN CALCIUM 80 MG TABLET PO SCH (22:00)
--- NOTE | 2019-06-07 18:17 | PDOC DISCHARGE SUMMARY ---
Impression - Admit/DC Date/PCP Admission Date/Primary Care Provider: 06/02/19 15:45 Discharge Date: 06/06/19 - Discharge Diagnosis (1) Acute CVA (cerebrovascular accident) Is this a current diagnosis for this admission?: Yes (2) Hyperlipidemia Is this a current diagnosis for this admission?: Yes (3) Hypertensive emergency Is this a current diagnosis for this admission?: Yes (4) Obesity Is this a current diagnosis for this admission?: Yes - Additional Information Resuscitation Status: Full Code Discharge Diet: Cardiac Discharge Activity: Activity As Tolerated, Balance Activity w/Rest Referrals: INDRA THOMAS DO [NO LOCAL MD] - (Follow up within 1 week to establish care with local PCP.left message to call us--) Prescriptions: Losartan Potassium [Cozaar 50 mg Tablet] 100 mg PO DAILY #60 tablet Aspirin [Ecotrin 81 mg EC Tablet] 81 mg PO DAILY #90 tabec Atorvastatin Calcium [Lipitor 80 mg Tablet] 80 mg PO QHS #30 tablet Clopidogrel Bisulfate [Plavix 75 mg Tablet] 75 mg PO DAILY #20 tablet Metoprolol Succinate [Toprol Xl 50 mg Tab.sr] 100 mg PO QHS #60 tab.sr.24h Home Medications: Acetaminophen [Tylenol 325 mg Tablet] 650 mg PO Q4HP PRN tablet 06/05/19 Aspirin [Ecotrin 81 mg EC Tablet] 81 mg PO DAILY #90 tabec 06/05/19 Atorvastatin Calcium [Lipitor 80 mg Tablet] 80 mg PO QHS #30 tablet 06/05/19 Clopidogrel Bisulfate [Plavix 75 mg Tablet] 75 mg PO DAILY #20 tablet 06/05/19 Losartan Potassium [Cozaar 50 mg Tablet] 100 mg PO DAILY #60 tablet 06/05/19 Metoprolol Succinate [Toprol Xl 50 mg Tab.sr] 100 mg PO QHS #60 tab.sr.24h 06/05/19 History of Present Illiness History of Present Illness: Per H&P by Everette Merino PA-C: PROMISE ARTIS is a 43 year old male moved down here from [place] about 2 months ago. 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 comes into the emergency room today because he has had slurred speech, headache for about a week ,what appears to be a right facial droop. When I saw the patient he had no facial weakness. According to his patient the symptoms started yesterday morning. He was at work today and they told him that he was slurring his words and he should go to the emergency room. In the emergency room his first blood pressure was 199/114 then 162/111, and 161/109. When I was in the room examining the patient that was his current pressure 161/109. She has had 1 dose of labetalol 10 mg IV in the ER Patient states his regular blood pressures are 124/85. States that last in August his blood pressure was doing so well that his provider cut the Norvasc back in half to 5 mg daily. He states he has been on blood pressure medicine now for a year and a half. Patient does have a strong family history of hypertension. CT head scan was normal,, chest x-ray was normal, EKG was normal. Hospital Course Hospital Course: The patient was admitted to [facility] on continuous cardiac telemetry. He remained in normal sinus rhythm throughout his admission. CT of the head was initially negative for acute CVA. Follow-up brain MRI/MRI revealed multiple small acute infarcts involving the left MCA. Subtotal occlusion of the left MCA was noted with hypoperfusion of the left MCA distribution. Carotid Doppler was benign. Echocardiogram revealed LVEF of 65%. Normal left ventricular diastolic function. Trace amount of mitral regurg. Trace amount of tricuspid regurg. No pulmonary hypertension noted. Arrangements were made for the patient to receive JOSE C through [facility]. Fortunately this was negative for intramural thrombus. Lipid, thyroid, and A1c were acceptable. Patient was initially allowed permissive hypertension; then blood pressure control was obtained through losartan and metoprolol. The patient was placed on daily aspirin, Plavix, and statin therapy. PT/OT/ST consultations were obtained; all services have subsequently signed off. Patient does continue to have slight slurred speech and right facial droop, however, this is also significantly improved as compared to the time of his admission. The patient is discharged home in stable condition. He is advised to follow-up with a primary care provider to establish with a local provider (has been receiving his primary care services from his previous physician in [place]). He is provided prescriptions for aspirin, losartan, atorvastatin, metoprolol, and a 21-day supply of Plavix. Lifestyle modification and dietary compliance are encouraged. He is instructed to return to emergency department as needed for any concerning symptoms. Physical Exam Vital Signs: Temp Pulse Resp BP Pulse Ox 97.8 F 74 16 121/76 99 06/05/19 12:05 06/05/19 12:05 06/05/19 12:05 06/05/19 12:05 06/05/19 12:05 General appearance: PRESENT: no acute distress, cooperative, obese, well-deve loped, well-nourished Head exam: PRESENT: atraumatic, normocephalic Eye exam: PRESENT: conjunctiva pink, EOMI, PERRLA. ABSENT: scleral icterus Ear exam: PRESENT: normal external ear exam Mouth exam: PRESENT: moist, tongue midline Neck exam: ABSENT: carotid bruit, JVD, lymphadenopathy, thyromegaly Respiratory exam: PRESENT: clear to auscultation ela, symmetrical, unlabored. ABSENT: rales, rhonchi, wheezes Cardiovascular exam: PRESENT: RRR, +S1, +S2. ABSENT: diastolic murmur, rubs, systolic murmur Pulses: PRESENT: normal dorsalis pedis pul Vascular exam: PRESENT: normal capillary refill GI/Abdominal exam: PRESENT: normal bowel sounds, soft. ABSENT: distended, guarding, mass, organolmegaly, rebound, tenderness Rectal exam: PRESENT: deferred Extremities exam: PRESENT: full ROM. ABSENT: calf tenderness, clubbing, pedal edema Musculoskeletal exam: PRESENT: ambulatory Neurological exam: PRESENT: alert, awake, oriented to person, oriented to place, oriented to time, oriented to situation, CN II-XII grossly intact. ABSENT: motor sensory deficit Psychiatric exam: PRESENT: appropriate affect, normal mood. ABSENT: homicidal ideation, suicidal ideation Skin exam: PRESENT: dry, intact, warm. ABSENT: cyanosis, rash Results Laboratory Results: WBC 7.4 10^3/uL (4.0-10.5) 06/02/19 13:10 RBC 4.88 10^6/uL (4.35-5.55) 06/02/19 13:10 Hgb 15.0 g/dL (13.5-17.0) 06/02/19 13:10 Hct 44.0 % (37.9-51.0) 06/02/19 13:10 MCV 90 fl (80-97) 06/02/19 13:10 MCH 30.7 pg (27.0-33.4) 06/02/19 13:10 MCHC 34.0 g/dL (32.0-36.0) 06/02/19 13:10 RDW 14.1 % (11.5-14.0) H 06/02/19 13:10 Plt Count 301 10^3/uL (150-450) 06/02/19 13:10 Lymph % (Auto) 16.4 % (13-45) 06/02/19 13:10 Edwards % (Auto) 10.3 % (3-13) 06/02/19 13:10 Eos % (Auto) 1.2 % (0-6) 06/02/19 13:10 Baso % (Auto) 0.5 % (0-2) 06/02/19 13:10 Absolute Neuts (auto) 5.3 10^3/uL (1.7-8.2) 06/02/19 13:10 Absolute Lymphs (auto) 1.2 10^3/uL (0.5-4.7) 06/02/19 13:10 Absolute Monos (auto) 0.8 10^3/uL (0.1-1.4) 06/02/19 13:10 Absolute Eos (auto) 0.1 10^3/uL (0.0-0.6) 06/02/19 13:10 Absolute Basos (auto) 0.0 10^3/uL (0.0-0.2) 06/02/19 13:10 Seg Neutrophils % 71.6 % (42-78) 06/02/19 13:10 PT 12.7 SEC (11.4-15.4) 06/02/19 13:10 PT Cancelled 06/02/19 13:10 INR 0.95 06/02/19 13:10 INR Cancelled 06/02/19 13:10 INR (Anticoag Therapy) Cancelled 06/02/19 13:10 APTT 31.4 SEC (23.5-35.8) 06/03/19 06:00 Sodium 141.4 mmol/L (137-145) 06/03/19 06:00 Potassium 3.5 mmol/L (3.6-5.0) L 06/03/19 06:00 Chloride 100 mmol/L (98-107) 06/03/19 06:00 Carbon Dioxide 31 mmol/L (22-30) H 06/03/19 06:00 Anion Gap 10 (5-19) 06/03/19 06:00 BUN 12 mg/dL (7-20) 06/03/19 06:00 Creatinine 0.78 mg/dL (0.52-1.25) 06/03/19 06:00 Est GFR ( Amer) > 60 (>60) 06/03/19 06:00 Est GFR (MDRD) Non-Af > 60 (>60) 06/03/19 06:00 Glucose 112 mg/dL (75-110) H 06/03/19 06:00 POC Glucose 104 mg/dL (70-110) 06/02/19 13:18 Hemoglobin A1c % 6.0 % (4.7-6.0) 06/03/19 06:00 Calcium 9.5 mg/dL (8.4-10.2) 06/03/19 06:00 Magnesium 2.2 mg/dL (1.6-2.3) 06/03/19 06:00 Total Bilirubin 0.4 mg/dL (0.2-1.3) 06/02/19 13:10 Direct Bilirubin 0.2 mg/dL (0.0-0.4) 06/02/19 13:10 Neonat Total Bilirubin Not Reportable 06/02/19 13:10 Neonat Direct Bilirubin Not Reportable 06/02/19 13:10 Neonat Indirect Bili Not Reportable 06/02/19 13:10 AST 25 U/L (17-59) 06/02/19 13:10 ALT 41 U/L (<50) 06/02/19 13:10 Alkaline Phosphatase 68 U/L (38-126) 06/02/19 13:10 Creatine Kinase 138 U/L (55-170) 06/02/19 13:10 Troponin I < 0.012 ng/mL 06/02/19 13:10 Total Protein 7.8 g/dL (6.3-8.2) 06/02/19 13:10 Albumin 4.9 g/dL (3.5-5.0) 06/02/19 13:10 Triglycerides 66 mg/dL (<150) 06/02/19 13:10 Cholesterol 179.81 mg/dL (0-200) 06/02/19 13:10 LDL Cholesterol Direct 131 mg/dL (<100) H 06/02/19 13:10 VLDL Cholesterol 13.0 mg/dL (10-31) 06/02/19 13:10 HDL Cholesterol 53 mg/dL (>40) 06/02/19 13:10 TSH 1.18 uIU/mL (0.47-4.68) 06/02/19 13:10 Urine Color YELLOW 06/02/19 13:10 Urine Appearance SLIGHTLY-CLOUDY 06/02/19 13:10 Urine pH 5.0 (5.0-9.0) 06/02/19 13:10 Ur Specific [place] 1.019 06/02/19 13:10 Urine Protein NEGATIVE mg/dL (NEGATIVE) 06/02/19 13:10 Urine Glucose (UA) NEGATIVE mg/dL (NEGATIVE) 06/02/19 13:10 Urine Ketones NEGATIVE mg/dL (NEGATIVE) 06/02/19 13:10 Urine Blood NEGATIVE (NEGATIVE) 06/02/19 13:10 Urine Nitrite NEGATIVE (NEGATIVE) 06/02/19 13:10 Urine Bilirubin NEGATIVE (NEGATIVE) 06/02/19 13:10 Urine Urobilinogen NEGATIVE mg/dL (<2.0) 06/02/19 13:10 Ur Leukocyte Esterase NEGATIVE (NEGATIVE) 06/02/19 13:10 Urine WBC (Auto) 1 /HPF 06/02/19 13:10 Urine RBC (Auto) 1 /HPF 06/02/19 13:10 Squamous Epi Cells Auto 1 /HPF 06/02/19 13:10 Urine Mucus (Auto) RARE /LPF 06/02/19 13:10 Urine Ascorbic Acid NEGATIVE (NEGATIVE) 06/02/19 13:10 06/02/19 13:10 Troponin I < 0.012 Impressions: Brain MRI with MRA 06/02/19 00:00 IMPRESSION: Subtotal occlusion of the left MCA with hypoperfusion of the left MCA distribution. Head MRI 06/02/19 00:00 IMPRESSION: Multiple small acute infarcts involving the left MCA distribution. EVIDENCE OF ACUTE STROKE: YES. LEFT MCA Chest X-Ray 06/02/19 13:00 IMPRESSION: NO ACUTE RADIOGRAPHIC FINDING IN THE CHEST. Head CT 06/02/19 13:00 IMPRESSION: NORMAL BRAIN CT WITHOUT CONTRAST. EVIDENCE OF ACUTE STROKE: NO. Carotid Doppler Study 06/03/19 00:00 IMPRESSION: 1. Mild atherosclerosis with mild intimal thickening in the proximal internal carotid arteries. 2. No stenosis of the carotid arteries 3. Normal antegrade flow in both vertebral arteries Plan Plan of Treatment: The patient is discharged home in stable condition. He does not require additional rehab services. He is instructed to establish with a local primary care provider as soon as radha sellers. Was advised to take his medications as prescribed. Lifestyle modification and dietary compliance were encouraged; continue eat a heart healthy diet and increase physical activity as tolerated. Return to the emergency department as needed for concerning symptoms. Stroke Is this a Stroke Patient?: Yes Stroke Pt being discharged on Anti-thrombolytic therapy?: Yes Stroke Pt being discharged on Anti-coagulation therapy?: No Reason(s) for not prescribing Anti-coagulation therapy:: Not indicated Stroke Pt being discharged on Statins?: Yes Acute Heart Failure - Is this a Heart Failure Patient?: No
== END 2019-06-05 14:01 | disposition home or self-care (01) ==
LOC: ER 12:42 → EH 15:45 → INTOOBSV 15:45 → 3S 21:22
PROVIDERS: ADMIT Emergency Medicine; ATTEND Emergency Medicine
DX: I63.9 Cerebral infarction, unspecified (principal); R47.81 Slurred speech; E78.5 Hyperlipidemia, unspecified; I16.1 Hypertensive emergency; E66.9 Obesity, unspecified; M54.2 Cervicalgia; Z79.82 Long term (current) use of aspirin; Z68.35 Body mass index [BMI] 35.0-35.9, adult; F17.290 Nicotine dependence, other tobacco product, uncomplicated; Z79.899 Other long term (current) drug therapy; Z82.49 Family history of ischemic heart disease and other diseases of the circulatory system; R29.703 NIHSS score 3; R40.2412 Glasgow coma scale score 13-15, at arrival to emergency department
CPT/HCPCS: 93005; 99285; 96374; 36415 ×2; 82962; 82550; 83735; 84443; 85025; 85610; 85730 ×2; 80048; 80053; 81001; 84484; 83036; 80061; 93306; 93880; 70551; 70544; 71045; 70450; 93010; 92522; G0378 ×5; J0360; J3490 ×5; J1650 ×3

== ENCOUNTER → 2019-11-03 | Outpatient (CLI) | payer BC ==
[2019-11-03 09:39] LABS: ABSOLUTE EOSINOPHILS # (AUTO) 0.1 10^3/uL (0.0-0.6); ABSOLUTE LYMPHOCYTES (AUTO) 1.3 10^3/uL (0.5-4.7); ABSOLUTE MONOCYTES (AUTO) 0.6 10^3/uL (0.1-1.4); ABSOLUTE NEUT (AUTO) 3.1 10^3/uL (1.7-8.2); BASOPHILS % (AUTO) 0.8 % (0-2); EOSINOPHILS % (AUTO) 2.5 % (0-6); HEMATOCRIT 42.2 % (37.9-51.0); HEMOGLOBIN 14.8 g/dL (13.5-17.0); LYMPHOCYTES % (AUTO) 24.7 % (13-45); MEAN CORPUSCULAR HEMOGLOBIN 31.7 pg (27.0-33.4); MEAN CORPUSCULAR VOLUME 91 fl (80-97); MONOCYTES % (AUTO) 12.4 % (3-13); PLATELET COUNT 265 10^3/uL (150-450); RED BLOOD COUNT 4.66 10^6/uL (4.35-5.55); RED CELL DISTRIBUTION WIDTH 14.5 % (11.5-14.0); SEGMENTED NEUTROPHILS % (AUTO) 59.6 % (42-78); TOTAL CELLS COUNTED % (AUTO) 100 %; WHITE BLOOD COUNT 5.2 10^3/uL (4.0-10.5)
[2019-11-03 10:12] LABS: ALBUMIN 4.2 g/dL (3.5-5.0); ALKALINE PHOSPHATASE 67 U/L (38-126); ANION GAP 9 (5-19); ASPARTATE AMINO TRANSFERASE 34 U/L (17-59); BILIRUBIN,DIRECT 0.3 mg/dL (0.0-0.4); BILIRUBIN,TOTAL 0.7 mg/dL (0.2-1.3); BLOOD UREA NITROGEN 20 mg/dL (7-20); CALCIUM 9.5 mg/dL (8.4-10.2); CARBON DIOXIDE 33 mmol/L (22-30); CHLORIDE 102 mmol/L (98-107); GLUCOSE 103 mg/dL (75-110); POTASSIUM 4.3 mmol/L (3.6-5.0); TOTAL PROTEIN 7.5 g/dL (6.3-8.2); TRIGLYCERIDES 102 mg/dL (<150)
[2019-11-03 10:23] LABS: DIRECT LDL 111 mg/dL (<100)
[2019-11-03 10:27] LABS: FREE T4 (FREE THYROXINE) 0.95 ng/dL (0.78-2.19)
[2019-11-03 10:41] LABS: THYROID STIMULATING HORMONE 1.33 uIU/mL (0.47-4.68)
[2019-11-04 19:04] LABS: TESTOSTERONE FREE (DIRECT) 6.8 pg/mL (6.8-21.5)
== END ==
LOC: OD 08:24
PROVIDERS: ATTEND Family Medicine
DX: E78.5 Hyperlipidemia, unspecified (principal); E29.1 Testicular hypofunction; R53.83 Other fatigue
CPT/HCPCS: 36415; 80053; 80061; 82533; 83036; 84402; 84403; 84439; 84443; 85025